=== PATIENT | female | born 1965 | race African-American/Black ===

== ENCOUNTER 2019-09-27 11:10 | Emergency (ER) | payer BC, SELFPAY ==
--- NOTE | 2019-09-27 11:21 | ED.URI ---
HPI - URI/Sore Throat General Chief Complaint: Upper Respiratory Infection Stated Complaint: body aches/chills Time Seen by Provider: 09/27/19 11:23 Source: patient and RN notes reviewed Mode of arrival: ambulatory Limitations: no limitations History of Present Illness HPI Narrative: 54-year-old female presents with concern for 1 day history of body aches, chills, headache, sinus drainage/postnasal that started yesterday. She reports taking TheraFlu with relief of symptoms. MD elicited complaint: other (Body aches) Related Data Home Medications Medication Instructions Recorded Confirmed escitalopram oxalate 10 mg DAILY 09/27/19 09/27/19 Allergies Allergy/AdvReac Type Severity Reaction Status Date / Time No Known Allergies Allergy Verified 09/27/19 11:24 Review of Systems Review of Systems: Narrative: CONSTITUTIONAL: Reports malaise, chills. Denies sweats, or fever. EYES: Denies visual changes, redness, or discharge. ENT: Reports rhinorrhea, postnasal drainage. Denies congestion, sinus pain, otalgia and sore throat. CARDIOVASCULAR: Denies chest pain, palpitations, or edema. RESPIRATORY: Denies cough or dyspnea. GASTROINTESTINAL: Denies abdominal pain, nausea, vomiting, diarrhea SKIN: Denies rash or itching. MUSCULOSKELETAL: Reports myalgia. NEUROLOGIC: Reports headache. All systems reviewed & are unremarkable except as noted in HPI and below PMFSH Social History Social History Gender identity (if verbalized by the patient): Female Comments At time of signature, agree with nursing past medical, surgical, social and family history. There is no relevant family history pertinent to the presenting complaint Exam Narrative: Exam Narrative: GENERAL: Well-appearing, well-nourished, and in no acute distress. HEAD: Normocephalic, atraumatic. EYES: PERRLA, conjunctivae clear, and EOMI. ENT: Nares clear, turbinates erythematous, clear discharge. Mucous membranes moist. TM pearly mccoy with sharp light reflex bilaterally; no tragal tenderness. Oropharynx not erythematous without lesions. Tonsils not enlarged and without exudate, no drooling, no hoarseness, no trismus. NECK: Supple. No lymphadenopathy CHEST: Clear to auscultation, breath sounds equal. No wheezing, rhonchi, rales, or stridor. No respiratory distress, speaks in full sentences. HEART: Regular rate and rhythm. No murmur heard. Normal peripheral pulses. SKIN: Warm, dry, no rash. NEURO: Alert and oriented x3. PSYCH: Normal mood and affect Course Course Emergency Course: Patient is aware of diagnosis, understands and agrees to treatment plan. Anticipatory guidance given. Patient agrees to follow-up as directed and is aware of reasons to seek care at the emergency department. Portions of this record may have been created with voice recognition software Vital Signs Vital signs: Vital Signs Temperature 98.7 F 09/27/19 11:22 Pulse Rate 78 09/27/19 11:22 Respiratory Rate 18 09/27/19 11:22 Blood Pressure 124/93 H 09/27/19 11:22 Pulse Oximetry 100 09/27/19 11:22 Temperature 98.7 F 09/27/19 11:22 Pulse Rate 78 09/27/19 11:22 Respiratory Rate 18 09/27/19 11:22 Blood Pressure 124/93 H 09/27/19 11:22 Pulse Oximetry 100 09/27/19 11:22 Reviewed. MDM - URI/Sore Throat MDM Narrative Medical decision making narrative: Differential diagnosis considered: Strep pharyngitis, allergic rhinitis, upper respiratory tract infection, sinusitis, rhinosinusitis, nasopharyngitis. viral pharyngitis, otitis media, otitis externa, pneumonia, bronchitis, viral cough syndrome, viral syndrome, and influenza. Exam findings show no acute concerns or changes; patient is non-toxic appearing and is in no distress. Patient is appropriate for outpatient treatment and follow-up. Lab Data Attestation: I reviewed the patient's lab results. Labs: Influenza A Screen Negative Reference Range: Negative Influenza B Screen Negative
[2019-09-27 11:22] VITALS: BP 124/93; PULSE 78; RESP 18; TEMP 37.1; O2SAT 100
== END 2019-09-27 12:03 | disposition home or self-care (01) ==
PROVIDERS: Emergency Provider Nurse Practitioner
DX: B34.9 Viral infection, unspecified (principal); F41.9 Anxiety disorder, unspecified
CPT/HCPCS: 87804; 99213; G0463

== ENCOUNTER 2022-04-08 12:21 | Emergency (ER) | payer BC, SELFPAY ==
[2022-04-08 12:42] VITALS: BP 130/77; PULSE 61; RESP 18; TEMP 36.3; O2SAT 100
--- NOTE | 2022-04-08 13:19 | ED.SKABFB ---
HPI - Skin/Abscess/Foreign Bdy General Chief complaint: Skin/Abscess/Foreign Body Stated complaint: Rash,Qtip stuck in Rt Ear Source: patient Mode of arrival: ambulatory Limitations: no limitations History of Present Illness HPI narrative: 56-year-old female presents to [facility] with complaints of itchy erythematous rash to upper chest, left arm and behind bilateral ears since yesterday --patient denies new medications, new soaps new detergents. Patient denies SOB, wheezing, trouble swallowing or difficulty breathing. Patient reports that she also has the cotton part of a Q-tip lodged to her right ear since yesterday. Patient denies ear pain or ear drainage. Patient denies fever, bodies, chills, nausea, vomiting or diarrhea. MD complaint: rash and foreign body (right ear ) Onset (ago): day(s) (1) Relieving factors: none Exacerbating factors: none Associated symptoms: denies other symptoms Treatments prior to arrival: none Related Data Home Medications Medication Instructions Recorded Confirmed escitalopram oxalate 5 mg tablet 10 mg DAILY 09/27/19 04/08/22 Allergies Allergy/AdvReac Type Severity Reaction Status Date / Time No Known Allergies Allergy Verified 04/08/22 12:30 Review of Systems Constitutional: Constitutional: Denies chills, Denies fatigue and Denies fever(s) ENT: Denies dizziness Comments: Foreign body to right ear Respiratory: Respiratory: Denies chest congestion, Denies cough, Denies dyspnea and Denies wheezing Gastrointestinal: Gastrointestinal: Denies abdominal pain, Denies bloating, Denies constipation and Denies heartburn Integumentary/Breasts: Skin/Breast: Reports pruritus, Reports rash and Denies skin ulcer Neurologic: Denies vertigo and Denies dizziness Endocrine: Endocrine: Denies fatigue PMFSH Family History Family History (Updated 04/08/22 @ 13:27 by Minerva Levin APRN) Father Diabetes mellitus Heart disease Mother Multiple sclerosis Social History Social History Gender identity (if verbalized by the patient): Female Comments At time of signature, I agree with nursing past medical, surgical, social and family history. There is no relevant family history pertinent to the presenting complaint. Exam Const: General: healthy appearing Nutritional Appearance: well nourished Orientation/consciousness: patient oriented x3 Limitations: no limitations HENMT: Head: normal to inspection Ears: Abnormal EAC present foreign body (Cotton part of a Q-tip lodged to right ear canal) on the right General nose exam: Normal external nose present Mouth: Yes Normal oral and palatal mucosa present Throat: posterior oropharynx normal Neck: Neck: normal visual inspection Resp: Effort & Inspection: normal respiratory effort and not labored Auscultation: clear to auscultation bilaterally and no crackles Cardio: Rate: regular rate Rhythm: regular rhythm Skin: General skin exam: normal color Wounds: no wounds Other: Erythematous macular papular rash noted to left arm, upper chest wall and behind bilateral ears with excoriation noted due to scratching. Rash likely represents contact dermatitis. There are no open wounds, bruising, bleeding or purulent drainage noted Neuro: General: patient oriented x3 and moves all extremities Speech: normal speech Psych: Mental Status: mental status grossly normal Affect: normal affect Course Course Level of Care: Express Care Visit Vital Signs Vital signs: Vital Signs Temperature 36.3 C L 04/08/22 12:42 Pulse Rate 61 04/08/22 12:42 Respiratory Rate 18 04/08/22 12:42 Blood Pressure 130/77 04/08/22 12:42 Pulse Oximetry 100 04/08/22 12:42 Oxygen Delivery Room Air 04/08/22 12:42 Temperature 36.3 C L 04/08/22 12:42 Pulse Rate 61 04/08/22 12:42 Respiratory Rate 18 04/08/22 12:42 Blood Pressure 130/77 04/08/22 12:42 Pulse Oximetry 100
== END 2022-04-08 13:33 | disposition home or self-care (01) ==
PROVIDERS: Emergency Provider Nurse Practitioner Family; PCP Internal Medicine
DX: T16.1XXA Foreign body in right ear, initial encounter (principal); X58.XXXA Exposure to other specified factors, initial encounter; L25.9 Unspecified contact dermatitis, unspecified cause; F41.9 Anxiety disorder, unspecified
CPT/HCPCS: 69200; 99213; G0463